=== PATIENT | male | born 1950 | race Caucasian/White ===

== ENCOUNTER 2022-02-03 21:02 | Inpatient (IN) | payer OTHER ==
[~2022-02-03] VITALS: Ht 170.2 cm; Wt 61.2 kg
[2022-02-03] MEDS ORDERED: levoFLOXacin 750MG/D5W 150 ML IV ONE ×2 (21:30→22:08)
[2022-02-03] MEDS ORDERED: ALBUTEROL SULFATE 2.5 MG/3 ML NEBU NEB ONE (21:30)
[2022-02-03] MEDS ORDERED: PIPERACILLIN SODIUM/TAZOBACTAM 3.375 G in IV DEXTROSE 5% 50 ML IV ONE (21:30)
[2022-02-03] MEDS ORDERED: ALBUTEROL SULFATE 2.5 MG/3 ML NEBU ONE (21:33)
[2022-02-03 22:00] LABS: ABG BASE EXCESS 0.3 mmol/L; ABG HCO3 26.5 mmol/L; ABG PCO2 48.3 mmHg (35.0-45.0); ABG PH 7.357 (7.350-7.450); ABG SITE RIGHT RADIAL; ABG TOTAL HEMOGLOBIN 15.2 G/dL (13.5-18.0); COHb 0.3 % (0.5-1.5); MetHb 0.6 % (0.0-1.5); O2Hb 98.6 % (94.0-97.0); VENT MODE BIPAP 15/5
[2022-02-03 22:06] LABS: HEMATOCRIT 42.7 % (36.7-47.1); MEAN CORPUSCULAR HEMOGLOBIN 31.7 uug (23.8-33.4); MEAN CORPUSCULAR VOLUME 93.5 fL (73.0-96.2); PLATELET COUNT (AUTO) 319 K/uL (152-348)
[2022-02-03] MEDS ORDERED: PIPERACILLIN/TAZOBACTAM/D5W 50 ML IV ONE (22:08)
[2022-02-03 22:17] LABS: CARBON DIOXIDE 30 mmol/L (21-32); CHLORIDE 100 mmol/L (98-107); CREATININE 2.2 mg/dL (0.6-1.3); GLUCOSE 162 mg/dL (74-106); POTASSIUM 4.4 mmol/L (3.5-5.1); UREA NITROGEN, BLOOD 30 mg/dL (7-18)
[2022-02-03 22:48] LABS: ALANINE AMINOTRANSFERASE 33 U/L (16-63); ALKALINE PHOSPHATASE 78 U/L (50-136); BILIRUBIN,TOTAL 0.5 mg/dL (0.2-1.0)
[2022-02-03 22:55] LABS: *BILIRUBIN,URIN NEGATIVE (NEGATIVE); *BLOOD, URINE NEGATIVE (NEGATIVE); *CLARITY,URINE CLOUDY (CLEAR); *COLOR,URINE YELLOW (YELLOW); *KETONES,URINE 1+ (NEGATIVE); *UROBILINOGEN,URINE 0.2 E.U./dl (NORMAL); LEUKOCYTE ESTERASE ,URINE TRACE (NEGATIVE); NITRITE, URINE NEGATIVE (NEGATIVE); PH,URINE 5.5 (5.0-8.0); UGLUCOSE NEGATIVE (NEGATIVE)
[2022-02-03] MEDS ORDERED: ENOXAPARIN SODIUM 60 MG/0.6 ML DISP.SYRIN SQ ONE ×2 (23:00→23:09)
[2022-02-03 23:01] LABS: ASPARTATE AMINOTRANSFERASE 35 U/L (15-37); BILIRUBIN,DIRECT 0.1 mg/dL (0.0-0.2)
[2022-02-03 23:05] LABS: ABG BASE EXCESS 3.4 mmol/L; ABG HCO3 30.5 mmol/L; ABG PCO2 55.8 mmHg (35.0-45.0); ABG PH 7.355 (7.350-7.450); ABG PO2 62.5 mmHg (75.0-100.0); ABG SITE RIGHT RADIAL; ABG TOTAL HEMOGLOBIN 15.2 G/dL (13.5-18.0); COHb 0.6 % (0.5-1.5); MetHb 0.7 % (0.0-1.5); VENT MODE BIPAP 15/5
[2022-02-03] MEDS ORDERED: PROPOFOL 100 ML ONE (23:27)
[2022-02-03] MEDS ORDERED: PROPOFOL 100 ML IV ONE (23:30)
[2022-02-03] MEDS ORDERED: IV NORMAL SALINE 1000 ML BAG IV ONE ×2 (23:30)
[2022-02-03] MEDS ORDERED: ETOMIDATE 20 MG/10 ML VIAL IV ONE ×2 (23:30→23:45)
[2022-02-03] MEDS ORDERED: ETOMIDATE 20 MG/10 ML VIAL ONE (23:30)
[2022-02-03] MEDS ORDERED: SUCCINYLCHOLINE CHLORIDE 200 MG/10 ML VIAL IV ONE (23:30)
[2022-02-03] MEDS ORDERED: SUCCINYLCHOLINE CHLORIDE 200 MG/10 ML VIAL ONE (23:30)
[2022-02-03] MEDS ORDERED: HYDR-3972 PO (23:53)
[2022-02-03] MEDS ORDERED: FLUT16SP16 NS (23:53)
[2022-02-03] MEDS ORDERED: SERT25TA PO (23:53)
[2022-02-03] MEDS ORDERED: CALC500T52 PO (23:53)
[2022-02-03] MEDS ORDERED: OMEP20TA20 PO (23:53)
[2022-02-03] MEDS ORDERED: FOLI1TAB94 PO (23:53)
[2022-02-03] MEDS ORDERED: MELA3TAB41 PO (23:53)
[2022-02-03] MEDS ORDERED: ALBU18HF2 IH ×2 (23:53)
[2022-02-03] MEDS ORDERED: MULT-594 PO (23:53)
[2022-02-03] MEDS ORDERED: GABA-532 PO (23:53)
[2022-02-03] MEDS ORDERED: ROSU10TA2 PO (23:53)
[2022-02-03] MEDS ORDERED: MIRT-121 PO (23:53)
[2022-02-03] MEDS ORDERED: GUAI200T5 PO (23:53)
[2022-02-03] MEDS ORDERED: AMLO-212 PO (23:53)
[2022-02-03] MEDS ORDERED: TAMS-3 PO (23:53)
[2022-02-03] MEDS ORDERED: ASPI81TA31 PO (23:53)
[2022-02-03] MEDS ORDERED: ACET-73 PO (23:53)
[2022-02-03] MEDS ORDERED: CHOL200026 PO (23:53)
[2022-02-03] MEDS ORDERED: BUDE10.2 IH (23:53)
[2022-02-03] MEDS ORDERED: IPRA3AMP23 IH (23:53)
[2022-02-04] VITALS (18 sets, daily range): BP systolic 83–149; BP diastolic 45–70
[2022-02-04 00:04] LABS: ABG BASE EXCESS 0.5 mmol/L; ABG HCO3 25.8 mmol/L; ABG PH 7.386 (7.350-7.450); ABG PO2 252.3 mmHg (75.0-100.0); ABG SITE RIGHT RADIAL; ABG TOTAL HEMOGLOBIN 14.6 G/dL (13.5-18.0); COHb 0.5 % (0.5-1.5); MetHb 0.5 % (0.0-1.5); O2Hb 98.7 % (94.0-97.0); VENT MODE VENT - A/C; VT, ABG 550 mL
[2022-02-04 01:19] LABS: BACTERIA,URINE MODERATE /HPF (NONE SEEN); COARSE GRANULAR CASTS,URINE FEW /LPF; SQUAMOUS EPITHELIAL CELL,UR MODERATE /HPF (NONE SEEN)
[2022-02-04] MEDS ORDERED: ACETAMINOPHEN 650 MG SUPP.RECT RC PRN (03:15)
[2022-02-04] MEDS ORDERED: ONDANSETRON 4 MG/2 ML VIAL IV PRN (03:15)
[2022-02-04] MEDS ORDERED: REMEDY ESSENTIAL ZINC PASTE 113 GM TP PRN (03:15)
[2022-02-04] MEDS ORDERED: DEXTROSE 50% 50 ML DISP.SYRIN IV PRN (03:30)
[2022-02-04 05:47] LABS: HEMATOCRIT 33.9 % (36.7-47.1); MEAN CORPUSCULAR HEMOGLOBIN 32.5 uug (23.8-33.4); MEAN CORPUSCULAR VOLUME 93.6 fL (73.0-96.2); PLATELET COUNT (AUTO) 243 K/uL (152-348)
[2022-02-04 05:55] LABS: ABG BASE EXCESS 0.2 mmol/L; ABG HCO3 23.1 mmol/L; ABG PCO2 31.8 mmHg (35.0-45.0); ABG PH 7.479 (7.350-7.450); ABG PO2 109.7 mmHg (75.0-100.0); ABG SITE RIGHT RADIAL; ABG TOTAL HEMOGLOBIN 12.2 G/dL (13.5-18.0); COHb 0.4 % (0.5-1.5); MetHb 0.4 % (0.0-1.5); O2Hb 97.5 % (94.0-97.0); VENT MODE VENT - A/C; VT, ABG 550 mL
[2022-02-04 06:00] LABS: ALANINE AMINOTRANSFERASE 22 U/L (16-63); ALKALINE PHOSPHATASE 52 U/L (50-136); ASPARTATE AMINOTRANSFERASE 44 U/L (15-37); CARBON DIOXIDE 29 mmol/L (21-32); CHLORIDE 107 mmol/L (98-107); CREATININE 2.5 mg/dL (0.6-1.3); GLUCOSE 122 mg/dL (74-106); MAGNESIUM 1.6 mg/dL (1.8-2.4); POTASSIUM 4.4 mmol/L (3.5-5.1); TOTAL PROTEIN, SERUM 5.7 g/dL (6.4-8.2); UREA NITROGEN, BLOOD 34 mg/dL (7-18)
--- NOTE | 2022-02-04 07:15 | NUR ---
Pt received on Pearce ventilator orally intubated with 7.5 ETT secured at 23cm lip line. Pt on ordered settings of A/C 16, VT 550, +5 PEEP , 50% FiO2. Pt tolerating vent settings well. Suctioned for small amounts of ha/yellowish secretions. ETT moved side to side with AnchorFast per hospital policy. No respiratory distress noted. Bag/valve/mask at bedside. HME changed. Oral care done. Vent plugged into red emergency outlet. Will continue to monitor.
[2022-02-04] MEDS: PIPERACILLIN SODIUM/TAZOBACTAM 3.375 G in IV DEXTROSE 5% 50 ML IV SCH ×4 (08:00→23:31)
--- NOTE | 2022-02-04 08:14 | NUR ---
pT RECEIVED IN 2B SEDATED WITH PROPOFOL AT A0 MC/KG/MIN. PT'S V/S IS STABLE.
[2022-02-04] MEDS ORDERED: MAGNESIUM SULFATE/D5W 100 ML IV SCH (08:15)
[2022-02-04] MEDS ORDERED: NOREPINEPHRINE BITARTRATE 4 MG/4 ML VIAL IV ONE (08:19)
[2022-02-04] MEDS ORDERED: PIPERACILLIN/TAZOBACTAM/D5W 0 ML IV ONE (08:53)
[2022-02-04] MEDS ORDERED: MAGNESIUM SULFATE/D5W 100 ML ONE (08:54)
[2022-02-04] MEDS ORDERED: PANTOPRAZOLE SODIUM 40 MG VIAL ONE (08:55)
--- NOTE | 2022-02-04 08:57 | NUR ---
HAND OFFTO MORNING NURSE ASSIGNED. PROPFOL INFUSING ORDERED.SBP 95.. INFUSING AT 8 MCG/KG/MIN.
[2022-02-04] MEDS: PANTOPRAZOLE SODIUM 40 MG VIAL IV SCH (09:00)
[2022-02-04] MEDS ORDERED: PIPERACILLIN/TAZOBACTAM/D5W 50 ML IV ONE ×3 (09:33→23:02)
--- NOTE | 2022-02-04 09:36 | NUR ---
PT IS IN BED #1A. REPORT WAS RECEIVED FROM STAFF FORESTER CCU RN. NO S/S OF ACUTE DISTRESS AT THIS TIME. CONTINUE TO MONITOR THE PT.
[2022-02-04] MEDS: NOREPINEPHRINE BITARTRATE 8 MG in IV NORMAL SALINE 242 ML IV PRN (10:44)
[2022-02-04] MEDS ORDERED: methylPREDNISolone SOD SUCC 40 MG/ML VIAL ONE ×3 (10:46→23:02)
[2022-02-04] MEDS: methylPREDNISolone SOD SUCC 40 MG/ML VIAL IV SCH ×3 (10:52→23:31)
[2022-02-04] MEDS: BLOOD SUGAR DIAGNOSTIC 1 EACH STRIP VI SCH ×2 (12:13→18:00)
--- NOTE | 2022-02-04 13:00 | NUR ---
Admission documentation done as requested by Heidi Rodriguez RN (Director of [facility]). Primary nurse taken care of Maikel Vargas RN. Any discrepancy in my documentation should be referred to the primary nurse YUAN Ko.
[2022-02-04] MEDS: IV 1/2NS 1000 ML 1,000 ML IV PRN (13:12)
--- NOTE | 2022-02-04 14:10 | NUR ---
DR WEBSTER EVALUATED THE PT .
--- NOTE | 2022-02-04 15:15 | NUR ---
Received pt. from [facility]. transfer from [facility]. Patient on ventilator, ETT 7.5 24LL A/C 16, tv 550 Peep +5 [id number]%. saturation 98%. Patient on Soft Restrain to RUE, and attempting to reach ETT with transfer. Pt. fully awake gagging and able to respond to closed ended questions. Propofol running. at 25mcg/kg/min. titrated for adequate sedation following protocol. Jhaveri to gravity. Hemodynamically stable on NSR SBP maintained by levophed running at 0.1mcg/kg/min/. PT. situated in bed. Will continue to monitor.
--- NOTE | 2022-02-04 15:21 | NUR ---
REPORT WAS GIVEN TO CCU YUAN BARRAGAN. PT WAS TRANSFERED TO ER ROOM #1B.
[2022-02-04] MEDS ORDERED: PROPOFOL 100 ML ONE ×2 (18:33→23:54)
--- NOTE | 2022-02-04 18:38 | NUR ---
Patient remains on ventilator with AC rate of 16, TV 550, PEEP of 5, 50% FiO2. No tachypnea, no distress noted and O2 sat is 99%. No secretions thru ET tube. Neuro adequate sedation achieve, propofol running at 40 mcg/kg/min. Hemodynamically stable on NSR SBP within desired limits with support of vasopressor, No edema noted. GI-biggs no n/v/d. biggs Jhaveri cath flowing to gravity with 1200 cc output dark elvi color urine. Mild skin breakdown with no complications, midline patent will endorse for continuous care.
[2022-02-05] VITALS (23 sets, daily range): BP systolic 95–143; BP diastolic 38–73
[2022-02-05] MEDS: PROPOFOL 100 ML IV PRN ×4 (00:01→16:18)
[2022-02-05] MEDS: INSULIN REGULAR, HUMAN 300 UNIT/3 ML VIAL SQ PRN ×2 (00:30→06:45)
[2022-02-05] MEDS ORDERED: PIPERACILLIN/TAZOBACTAM/D5W 50 ML IV ONE ×2 (01:56→22:02)
[2022-02-05] MEDS: PIPERACILLIN SODIUM/TAZOBACTAM 3.375 G in IV DEXTROSE 5% 50 ML IV SCH ×4 (02:13→20:00)
[2022-02-05] MEDS: IV 1/2NS 1000 ML 1,000 ML IV PRN ×2 (02:18→17:59)
[2022-02-05 05:15] LABS: CARBON DIOXIDE 24 mmol/L (21-32); CHLORIDE 105 mmol/L (98-107); CREATININE 1.7 mg/dL (0.6-1.3); GLUCOSE 206 mg/dL (74-106); MAGNESIUM 2.3 mg/dL (1.8-2.4); PHOSPHOROUS 1.4 mg/dL (2.5-4.9); POTASSIUM 3.5 mmol/L (3.5-5.1); UREA NITROGEN, BLOOD 27 mg/dL (7-18)
[2022-02-05] MEDS ORDERED: methylPREDNISolone SOD SUCC 40 MG/ML VIAL ONE ×3 (05:29→18:00)
[2022-02-05] MEDS ORDERED: PROPOFOL 100 ML ONE ×4 (05:30→20:57)
[2022-02-05 05:33] LABS: HEMATOCRIT 32.3 % (36.7-47.1); MEAN CORPUSCULAR HEMOGLOBIN 31.9 uug (23.8-33.4); MEAN CORPUSCULAR VOLUME 92.3 fL (73.0-96.2); PLATELET COUNT (AUTO) 272 K/uL (152-348)
[2022-02-05] MEDS ORDERED: NOREPINEPHRINE BITARTRATE 4 MG/4 ML VIAL IV ONE ×2 (05:33→23:13)
[2022-02-05 05:43] LABS: ABG BASE EXCESS 0.4 mmol/L; ABG PCO2 23.8 mmHg (35.0-45.0); ABG PH 7.564 (7.350-7.450); ABG PO2 118.3 mmHg (75.0-100.0); ABG SITE RIGHT RADIAL; ABG TOTAL HEMOGLOBIN 12.8 G/dL (13.5-18.0); COHb 0.3 % (0.5-1.5); MetHb 0.2 % (0.0-1.5); O2Hb 98.4 % (94.0-97.0); VENT MODE VENT - A/C; VT, ABG 550 mL
[2022-02-05] MEDS: methylPREDNISolone SOD SUCC 40 MG/ML VIAL IV SCH ×2 (05:56→18:01)
[2022-02-05] MEDS: NOREPINEPHRINE BITARTRATE 8 MG in IV NORMAL SALINE 242 ML IV PRN (06:46)
[2022-02-05] MEDS: BLOOD SUGAR DIAGNOSTIC 1 EACH STRIP VI SCH ×4 (06:49→17:20)
[2022-02-05] MEDS ORDERED: PANTOPRAZOLE SODIUM 40 MG VIAL ONE (08:07)
[2022-02-05] MEDS: PANTOPRAZOLE SODIUM 40 MG VIAL IV SCH (08:23)
[2022-02-05] MEDS ORDERED: POTASSIUM PHOSPHATE MM 15 MMOL in IV NORMAL SALINE 250 ML IV ONE (10:00)
--- NOTE | 2022-02-05 10:00 | NUR ---
Attending N.P in the unit to see and examine pt. report given orders to continue with care plan received and implemented.
--- NOTE | 2022-02-05 11:38 | NUR ---
Pulmonary services, Dr. Frances in the unit report given orders for CPAP trial for 02/06/2022. CPAP PSV10 PEEP+5. ABG in 1 hour or sooner if not tolerated. Decrease sedation only mild sedation if needed it. Addendum: 02/05/22 at 1443 by YUNG DELUCA RN User error orders received from Dr. Hsieh.
[2022-02-06] VITALS (12 sets, daily range): BP systolic 99–146; BP diastolic 43–70
[2022-02-06] MEDS ORDERED: PROPOFOL 100 ML ONE ×2 (01:27→04:22)
[2022-02-06] MEDS: PROPOFOL 100 ML IV PRN (01:30)
[2022-02-06] MEDS: PIPERACILLIN SODIUM/TAZOBACTAM 3.375 G in IV DEXTROSE 5% 50 ML IV SCH ×4 (02:00→20:41)
[2022-02-06] MEDS ORDERED: MIDAZOLAM HCL 50 MG in IV NORMAL SALINE 40 ML IV PRN (03:00)
[2022-02-06] MEDS ORDERED: FENTANYL CITRATE/PF 1,000 MCG in IV NORMAL SALINE 80 ML IV PRN (03:00)
[2022-02-06] MEDS ORDERED: NOREPINEPHRINE BITARTRATE 4 MG/4 ML VIAL IV ONE (03:21)
[2022-02-06] MEDS ORDERED: PIPERACILLIN/TAZOBACTAM/D5W 50 ML IV ONE ×3 (04:29→14:44)
[2022-02-06 04:51] LABS: HEMATOCRIT 32.2 % (36.7-47.1); MEAN CORPUSCULAR HEMOGLOBIN 31.5 uug (23.8-33.4); MEAN CORPUSCULAR VOLUME 92.2 fL (73.0-96.2); PLATELET COUNT (AUTO) 255 K/uL (152-348)
[2022-02-06 05:06] LABS: CARBON DIOXIDE 22 mmol/L (21-32); CHLORIDE 108 mmol/L (98-107); CREATININE 1.6 mg/dL (0.6-1.3); GLUCOSE 232 mg/dL (74-106); MAGNESIUM 2.3 mg/dL (1.8-2.4); PHOSPHOROUS 4.7 mg/dL (2.5-4.9); POTASSIUM 3.6 mmol/L (3.5-5.1); UREA NITROGEN, BLOOD 31 mg/dL (7-18)
[2022-02-06 05:39] LABS: ABG BASE EXCESS -2.3 mmol/L; ABG HCO3 19.8 mmol/L; ABG PCO2 26.3 mmHg (35.0-45.0); ABG PH 7.494 (7.350-7.450); ABG PO2 91.5 mmHg (75.0-100.0); ABG SITE RIGHT RADIAL; ABG TOTAL HEMOGLOBIN 11.5 G/dL (13.5-18.0); COHb 0.3 % (0.5-1.5); MetHb 0.2 % (0.0-1.5); O2Hb 96.6 % (94.0-97.0); VENT MODE VENT - A/C; VT, ABG 550 mL
[2022-02-06] MEDS: BLOOD SUGAR DIAGNOSTIC 1 EACH STRIP VI SCH ×4 (06:00→17:07)
[2022-02-06] MEDS: methylPREDNISolone SOD SUCC 40 MG/ML VIAL IV SCH ×2 (06:00→17:53)
--- NOTE | 2022-02-06 08:28 | NUR ---
turned down sedation for weaning. patient not responding so sedation completely turned off. continue with sedation vacation and will continue to wean if tolerated. reported to me that patient was agitated over night received patient on 60 mcg of propofol. Addendum: 02/07/22 at 1444 by REGISTRY [facility] RN1 RN pT CANT DRINK LYING DOWN
[2022-02-06] MEDS: INSULIN REGULAR, HUMAN 300 UNIT/3 ML VIAL SQ PRN (08:38)
[2022-02-06] MEDS ORDERED: PANTOPRAZOLE SODIUM 40 MG VIAL ONE (08:53)
[2022-02-06] MEDS: PANTOPRAZOLE SODIUM 40 MG VIAL IV SCH (09:13)
[2022-02-06 09:59] LABS: ABG BASE EXCESS -2.7 mmol/L; ABG HCO3 20.2 mmol/L; ABG PCO2 29.3 mmHg (35.0-45.0); ABG PH 7.456 (7.350-7.450); ABG PO2 119.2 mmHg (75.0-100.0); ABG SITE LEFT RADIAL; ABG TOTAL HEMOGLOBIN 12.1 G/dL (13.5-18.0); COHb 0.3 % (0.5-1.5); MetHb 0.2 % (0.0-1.5); VENT MODE CPAP
[2022-02-06] MEDS ORDERED: DC PROPOFOL ONCE EXTUBATED XX PRN (10:10)
[2022-02-06] MEDS ORDERED: MORPHINE SULFATE 2 MG/1 ML DISP.SYRIN IV ONE (12:30)
[2022-02-06] MEDS ORDERED: CHOLECALCIFEROL 400 UNITS TABLET ONE (12:56)
[2022-02-06] MEDS ORDERED: GUAIFENESIN LA 600 MG TABLET.SA PO ONE (12:56)
[2022-02-06] MEDS ORDERED: ASPIRIN 81 MG TAB.CHEW ONE (12:56)
[2022-02-06] MEDS ORDERED: FOLIC ACID 1 MG TABLET ONE (12:56)
[2022-02-06] MEDS ORDERED: GABAPENTIN 300 MG CAPSULE ONE (12:56)
[2022-02-06] MEDS ORDERED: MORPHINE SULFATE 2 MG/1 ML DISP.SYRIN ONE (12:57)
[2022-02-06] MEDS ORDERED: SERTRALINE HCL 50 MG TABLET ONE (12:57)
[2022-02-06] MEDS ORDERED: TAMSULOSIN HCL 0.4 MG CAP.SR.24H ONE (12:57)
[2022-02-06] MEDS ORDERED: SERTRALINE HCL 50 MG TABLET GT SCH (13:00)
[2022-02-06] MEDS ORDERED: ASPIRIN 81 MG TAB.CHEW GT SCH (13:00)
[2022-02-06] MEDS ORDERED: FOLIC ACID 1 MG TABLET GT SCH (13:00)
[2022-02-06] MEDS ORDERED: CHOLECALCIFEROL 400 UNITS TABLET GT SCH (13:00)
[2022-02-06] MEDS ORDERED: MULTIVITAMINS,THERAPEUTIC TABLET GT SCH (13:00)
[2022-02-06] MEDS ORDERED: FLUTICASONE PROP NASAL SPRAY 16 GM BOTTLE NS PRN (13:00)
[2022-02-06] MEDS: FOLIC ACID 1 MG TABLET PO SCH (13:07)
[2022-02-06] MEDS: CHOLECALCIFEROL 400 UNITS TABLET PO SCH (13:08)
[2022-02-06] MEDS: GABAPENTIN 300 MG CAPSULE PO SCH ×2 (13:08→16:23)
[2022-02-06] MEDS: MULTIVITAMINS,THERAPEUTIC TABLET PO SCH (13:08)
[2022-02-06] MEDS: ASPIRIN 81 MG TAB.CHEW PO SCH (13:08)
[2022-02-06] MEDS: GUAIFENESIN LA 600 MG TABLET.SA PO SCH ×2 (13:09→21:00)
[2022-02-06] MEDS: TAMSULOSIN HCL 0.4 MG CAP.SR.24H PO SCH (13:09)
[2022-02-06] MEDS: SERTRALINE HCL 50 MG TABLET PO SCH (13:09)
[2022-02-06] MEDS: IV 1/2NS 1000 ML 1,000 ML IV PRN (14:23)
[2022-02-06] MEDS: HYDROCODONE/APAP 5-325MG TABLET PO PRN ×2 (16:23→22:24)
[2022-02-06] MEDS ORDERED: ACETAMINOPHEN ES 500 MG TABLET PO PRN (19:45)
[2022-02-06] MEDS: MELATONIN 3 MG TABLET PO SCH (21:00)
[2022-02-06] MEDS: MIRTAZAPINE 15 MG TABLET PO SCH (21:00)
[2022-02-06] MEDS: ATORVASTATIN 20 MG TABLET PO SCH (21:00)
[2022-02-07] VITALS: BP 131/54
[2022-02-07] MEDS: PIPERACILLIN SODIUM/TAZOBACTAM 3.375 G in IV DEXTROSE 5% 50 ML IV SCH ×4 (02:00→21:15)
[2022-02-07 04:00] VITALS: BP 121/54
[2022-02-07] MEDS: HYDROCODONE/APAP 5-325MG TABLET PO PRN ×9 (05:04→23:56)
[2022-02-07] MEDS: methylPREDNISolone SOD SUCC 40 MG/ML VIAL IV SCH ×2 (05:08→18:00)
[2022-02-07] MEDS: BLOOD SUGAR DIAGNOSTIC 1 EACH STRIP VI SCH ×5 (05:09→23:16)
[2022-02-07] MEDS: PANTOPRAZOLE SODIUM 40 MG TABLET.DR PO SCH (07:27)
[2022-02-07 07:37] LABS: HEMATOCRIT 31.5 % (36.7-47.1); MEAN CORPUSCULAR HEMOGLOBIN 32.2 uug (23.8-33.4); MEAN CORPUSCULAR VOLUME 92.8 fL (73.0-96.2); PLATELET COUNT (AUTO) 236 K/uL (152-348)
[2022-02-07 07:53] LABS: CARBON DIOXIDE 27 mmol/L (21-32); CHLORIDE 109 mmol/L (98-107); CREATININE 1.4 mg/dL (0.6-1.3); GLUCOSE 109 mg/dL (74-106); MAGNESIUM 2.2 mg/dL (1.8-2.4); PHOSPHOROUS 4.9 mg/dL (2.5-4.9); POTASSIUM 4.2 mmol/L (3.5-5.1); UREA NITROGEN, BLOOD 35 mg/dL (7-18)
[2022-02-07 08:06] LABS: ABG BASE EXCESS -2.8 mmol/L; ABG HCO3 21.2 mmol/L; ABG PCO2 34.5 mmHg (35.0-45.0); ABG PH 7.407 (7.350-7.450); ABG PO2 139.5 mmHg (75.0-100.0); ABG SITE RIGHT RADIAL; COHb 0.2 % (0.5-1.5); MetHb 0.2 % (0.0-1.5); O2Hb 98.2 % (94.0-97.0); VENT MODE Nasal Cannula
[2022-02-07] MEDS: MULTIVITAMINS,THERAPEUTIC TABLET PO SCH (09:00)
[2022-02-07] MEDS: TAMSULOSIN HCL 0.4 MG CAP.SR.24H PO SCH (09:00)
[2022-02-07] MEDS: CALCIUM CARBONATE 500 MG TABLET PO SCH (09:00)
[2022-02-07] MEDS: GUAIFENESIN LA 600 MG TABLET.SA PO SCH ×2 (09:00→21:15)
[2022-02-07] MEDS: CHOLECALCIFEROL 400 UNITS TABLET PO SCH (09:00)
[2022-02-07] MEDS: GABAPENTIN 300 MG CAPSULE PO SCH ×3 (09:00→17:00)
[2022-02-07] MEDS: FOLIC ACID 1 MG TABLET PO SCH (09:00)
[2022-02-07] MEDS: ASPIRIN 81 MG TAB.CHEW PO SCH (09:00)
[2022-02-07] MEDS: SERTRALINE HCL 50 MG TABLET PO SCH (09:00)
[2022-02-07] MEDS: AMLODIPINE 5 MG TABLET PO SCH (09:00)
[2022-02-07] MEDS: MIRTAZAPINE 15 MG TABLET PO SCH (21:15)
[2022-02-07] MEDS: MELATONIN 3 MG TABLET PO SCH (21:15)
[2022-02-07] MEDS: ATORVASTATIN 20 MG TABLET PO SCH (21:15)
[2022-02-07] MEDS: LORAZEPAM 2 MG/1 ML VIAL IV PRN (21:51)
[2022-02-07] MEDS ORDERED: ALBUTEROL SULFATE 1.25 MG/3 ML NEBU NEB PRN (23:45)
--- NOTE | 2022-02-08 00:05 | NUR ---
--RECEIVED PT A/OX3 WITH STABLE VS. PT IS AWAKE. PT DENIES PAIN. SR. PT IS ON O2 4L/NC. POX >90%. RESPS REG/UNLAB. IV I/P VIA R.ARM ML. PT HAS F/C I/P. PT HAS DISPO FOR TRANSFER TO TELE. REPORT GIVEN TO YUAN LIVINGSTON. PT TRANSFERED AT 0005 VIA BED WITH ACLS PROTOCOL TO RM 310. PT'S FAMILY NOTIFIED. THUY BOLDEN
[2022-02-08] MEDS ORDERED: MORPHINE SULFATE 4 MG/1 ML DISP.SYRIN IV PRN (01:15)
[2022-02-08] MEDS: PIPERACILLIN SODIUM/TAZOBACTAM 3.375 G in IV DEXTROSE 5% 50 ML IV SCH ×2 (01:44→08:30)
[2022-02-08] MEDS: LORAZEPAM 2 MG/1 ML VIAL IV PRN (03:41)
[2022-02-08] MEDS ORDERED: MORPHINE SULFATE 2 MG/1 ML DISP.SYRIN IV PRN (05:45)
[2022-02-08] MEDS: PANTOPRAZOLE SODIUM 40 MG TABLET.DR PO SCH (06:08)
[2022-02-08] MEDS: BLOOD SUGAR DIAGNOSTIC 1 EACH STRIP VI SCH ×3 (06:08→18:26)
[2022-02-08] MEDS: methylPREDNISolone SOD SUCC 40 MG/ML VIAL IV SCH ×2 (06:08→17:22)
[2022-02-08 06:35] LABS: HEMATOCRIT 30.2 % (36.7-47.1); MEAN CORPUSCULAR HEMOGLOBIN 31.7 uug (23.8-33.4); MEAN CORPUSCULAR VOLUME 92.7 fL (73.0-96.2); PLATELET COUNT (AUTO) 217 K/uL (152-348)
[2022-02-08 07:02] LABS: CREATININE 1.2 mg/dL (0.6-1.3); MAGNESIUM 2.1 mg/dL (1.8-2.4); PHOSPHOROUS 3.1 mg/dL (2.5-4.9); POTASSIUM 3.8 mmol/L (3.5-5.1)
[2022-02-08] MEDS: GABAPENTIN 300 MG CAPSULE PO SCH ×3 (08:30→17:22)
[2022-02-08] MEDS: CHOLECALCIFEROL 400 UNITS TABLET PO SCH (08:31)
[2022-02-08] MEDS: CALCIUM CARBONATE 500 MG TABLET PO SCH (08:31)
[2022-02-08] MEDS: ASPIRIN 81 MG TAB.CHEW PO SCH (08:31)
[2022-02-08] MEDS: MULTIVITAMINS,THERAPEUTIC TABLET PO SCH (08:31)
[2022-02-08] MEDS: FOLIC ACID 1 MG TABLET PO SCH (08:31)
[2022-02-08] MEDS: SERTRALINE HCL 50 MG TABLET PO SCH (08:31)
[2022-02-08] MEDS: AMLODIPINE 5 MG TABLET PO SCH (08:36)
[2022-02-08] MEDS: IV 1/2NS 1000 ML 1,000 ML IV PRN (11:15)
[2022-02-08] MEDS: GUAIFENESIN LA 600 MG TABLET.SA PO SCH ×2 (11:22→21:18)
[2022-02-08 11:57] VITALS: BP 101/46
[2022-02-08 15:37] VITALS: BP 151/44
[2022-02-08] MEDS: PIPERACILLIN SODIUM/TAZOBACTAM 3.375 G in IV DEXTROSE 5% 100 ML IV SCH (16:27)
[2022-02-08] MEDS: INSULIN REGULAR, HUMAN 300 UNIT/3 ML VIAL SQ PRN (18:27)
[2022-02-08 20:00] VITALS: BP 107/49
[2022-02-08] MEDS: MELATONIN 3 MG TABLET PO SCH (21:18)
[2022-02-08] MEDS: TAMSULOSIN HCL 0.4 MG CAP.SR.24H PO SCH (21:18)
[2022-02-08] MEDS: ATORVASTATIN 20 MG TABLET PO SCH (21:18)
[2022-02-08] MEDS: MIRTAZAPINE 15 MG TABLET PO SCH (21:18)
[2022-02-09] VITALS: BP 93/44
[2022-02-09] MEDS: PIPERACILLIN SODIUM/TAZOBACTAM 3.375 G in IV DEXTROSE 5% 100 ML IV SCH ×4 (00:07→23:57)
[2022-02-09] MEDS: BLOOD SUGAR DIAGNOSTIC 1 EACH STRIP VI SCH ×5 (00:12→23:57)
[2022-02-09] MEDS: INSULIN REGULAR, HUMAN 300 UNIT/3 ML VIAL SQ PRN ×3 (00:15→06:43)
[2022-02-09 04:00] VITALS: BP 101/44
[2022-02-09] MEDS: methylPREDNISolone SOD SUCC 40 MG/ML VIAL IV SCH (05:46)
--- NOTE | 2022-02-09 06:13 | NUR ---
Slept intermittently, denies chest pain, no acute distress noted. Needs assessed and attended to. Call light within easy reach.
[2022-02-09] MEDS: PANTOPRAZOLE SODIUM 40 MG TABLET.DR PO SCH ×3 (06:17→06:45)
[2022-02-09 07:43] LABS: HEMATOCRIT 34.5 % (36.7-47.1); MEAN CORPUSCULAR HEMOGLOBIN 31.7 uug (23.8-33.4); MEAN CORPUSCULAR VOLUME 92.7 fL (73.0-96.2); PLATELET COUNT (AUTO) 285 K/uL (152-348)
[2022-02-09 07:55] LABS: CREATININE 1.1 mg/dL (0.6-1.3); MAGNESIUM 2.1 mg/dL (1.8-2.4); POTASSIUM 4.4 mmol/L (3.5-5.1)
[2022-02-09] MEDS: GABAPENTIN 300 MG CAPSULE PO SCH ×3 (08:16→17:49)
[2022-02-09] MEDS: CALCIUM CARBONATE 500 MG TABLET PO SCH (08:16)
[2022-02-09] MEDS: CHOLECALCIFEROL 400 UNITS TABLET PO SCH (08:16)
[2022-02-09] MEDS: ASPIRIN 81 MG TAB.CHEW PO SCH (08:16)
[2022-02-09] MEDS: GUAIFENESIN LA 600 MG TABLET.SA PO SCH ×2 (08:16→21:05)
[2022-02-09] MEDS: MULTIVITAMINS,THERAPEUTIC TABLET PO SCH (08:16)
[2022-02-09] MEDS: FOLIC ACID 1 MG TABLET PO SCH (08:16)
[2022-02-09] MEDS: SERTRALINE HCL 50 MG TABLET PO SCH (08:17)
[2022-02-09] MEDS: AMLODIPINE 5 MG TABLET PO SCH (08:33)
[2022-02-09 11:30] VITALS: BP 119/60
[2022-02-09] MEDS ORDERED: METH4TAB3 PO (15:41)
[2022-02-09 16:26] VITALS: BP 120/58
--- NOTE | 2022-02-09 17:00 | NUR ---
PT WILL GO BACK [facility] TO [facility] AT 1200 PER CM. REPORT ALREADY GIVEN TO ESE BOLDEN OF [facility].
[2022-02-09] MEDS: predniSONE 20 MG TABLET PO SCH (17:49)
--- NOTE | 2022-02-09 18:30 | NUR ---
NO ACUTE DISTRESS NOTED. NO COMPLAIN OF PAIN. PT ON RA SATURATING AT 97%. VITALS WNL. ASPIRATION PRECAUTION IN PLACED.PT IS AGITATED AT TIMES WHEN HE DOES NOT GET WHAT HE WANTS. PT REFUSED TO EAT PUREED MEALS. STILL ON ABX TX. [place] INTACT AND DRAINING WELL. CALL LIGHT ON BEDSIDE.
[2022-02-09 20:00] VITALS: BP 138/72
[2022-02-09] MEDS: ATORVASTATIN 20 MG TABLET PO SCH (21:05)
[2022-02-09] MEDS: TAMSULOSIN HCL 0.4 MG CAP.SR.24H PO SCH (21:05)
[2022-02-09] MEDS: MELATONIN 3 MG TABLET PO SCH (21:05)
[2022-02-09] MEDS: MIRTAZAPINE 15 MG TABLET PO SCH (21:06)
[2022-02-10] MEDS: INSULIN REGULAR, HUMAN 300 UNIT/3 ML VIAL SQ PRN (00:08)
[2022-02-10 04:00] VITALS: BP 126/40
[2022-02-10 06:33] LABS: HEMATOCRIT 31.8 % (36.7-47.1); MEAN CORPUSCULAR HEMOGLOBIN 31.9 uug (23.8-33.4); MEAN CORPUSCULAR VOLUME 90.9 fL (73.0-96.2); PLATELET COUNT (AUTO) 271 K/uL (152-348)
[2022-02-10] MEDS: PANTOPRAZOLE SODIUM 40 MG TABLET.DR PO SCH (06:41)
[2022-02-10] MEDS: BLOOD SUGAR DIAGNOSTIC 1 EACH STRIP VI SCH ×2 (06:42→12:00)
[2022-02-10 06:58] LABS: MAGNESIUM 1.6 mg/dL (1.8-2.4); PHOSPHOROUS 2.9 mg/dL (2.5-4.9); POTASSIUM 4.7 mmol/L (3.5-5.1)
[2022-02-10] MEDS: predniSONE 20 MG TABLET PO SCH ×2 (08:00→09:14)
[2022-02-10] MEDS: PIPERACILLIN SODIUM/TAZOBACTAM 3.375 G in IV DEXTROSE 5% 100 ML IV SCH (08:00)
[2022-02-10 09:00] VITALS: BP 122/49
[2022-02-10] MEDS: AMLODIPINE 5 MG TABLET PO SCH ×2 (09:00→09:17)
[2022-02-10] MEDS: CALCIUM CARBONATE 500 MG TABLET PO SCH ×2 (09:00→09:15)
[2022-02-10] MEDS: ASPIRIN 81 MG TAB.CHEW PO SCH ×2 (09:00→09:08)
[2022-02-10] MEDS: GABAPENTIN 300 MG CAPSULE PO SCH ×2 (09:00→09:08)
[2022-02-10] MEDS: FOLIC ACID 1 MG TABLET PO SCH (09:09)
[2022-02-10] MEDS: CHOLECALCIFEROL 400 UNITS TABLET PO SCH (09:09)
[2022-02-10] MEDS: GUAIFENESIN LA 600 MG TABLET.SA PO SCH (09:09)
[2022-02-10] MEDS: SERTRALINE HCL 50 MG TABLET PO SCH (09:09)
[2022-02-10] MEDS: MULTIVITAMINS,THERAPEUTIC TABLET PO SCH (09:17)
--- NOTE | 2022-02-10 09:46 | NUR ---
patient refused his atb IV medication, risks and benefits explained, patient verbalized understanding of it, still refused.
[2022-02-10] MEDS ORDERED: MAGNESIUM OXIDE 400 MG TABLET PO ONE (10:00)
--- NOTE | 2022-02-10 12:31 | NUR ---
RECEIVED PATIENT AWAKE IN BED. HE IS ALERT WITH PERIODS OF CONFUSION. hE CAME IN FOR SHIRTNESS OF BREATH WITH COUGH. DX: RESPIRATORY FAILURE/ ASPIRATION. PATIENT ABLE TO TAKE PILLS WHOLE. HE REFUSED ALL MEDICATIONS EXCEPT FOR THE VITAMINS. [facility] HE WAS PICKED UP BY [facility]BULANCE IN STABLE CONDITION. ALL DISCHARGE INSTRUCTIONS AND PAPER WORK SENT WITH PATIENT. FACILITY CALLED AND GAVE REPORT TO NURSE LINCOLN. F/C AND IV TAKEN OFF BEFORE PATIENTS DEPARTURE. HE LEFT COMFORT AND INSTABLE CONDITION.
== END 2022-02-10 11:30 | DRG 871 ==
LOC: ER 21:04 → TRANSITION 02-04 01:00 → CCU 02-06 15:33 → TELE3 02-07 21:00 → MEDSURG3 02-09 10:34
PROVIDERS: ADMIT Nurse Practitioner Family; ATTEND Nurse Practitioner Acute Care
PROC: 5A09357 Assistance with Respiratory Ventilation, Less than 24 Consecutive Hours, Continuous Positive Airway Pressure (ICD-10-PCS; principal; 2022-02-04)
PROC: 05H533Z Insertion of Infusion Device into Right Subclavian Vein, Percutaneous Approach (ICD-10-PCS; 2022-02-04)
PROC: 5A1945Z Respiratory Ventilation, 24-96 Consecutive Hours (ICD-10-PCS; 2022-02-04)
PROC: 0BH17EZ Insertion of Endotracheal Airway into Trachea, Via Natural or Artificial Opening (ICD-10-PCS; 2022-02-04)
PROC: B546ZZA Ultrasonography of Right Subclavian Vein, Guidance (ICD-10-PCS; 2022-02-04)
DX: A41.9 Sepsis, unspecified organism (principal); J69.0 Pneumonitis due to inhalation of food and vomit; J96.02 Acute respiratory failure with hypercapnia; J96.01 Acute respiratory failure with hypoxia; N17.0 Acute kidney failure with tubular necrosis; R65.21 Severe sepsis with septic shock; E87.20 Acidosis, unspecified; I42.0 Dilated cardiomyopathy; J44.0 Chronic obstructive pulmonary disease with (acute) lower respiratory infection; N39.0 Urinary tract infection, site not specified; Z16.12 Extended spectrum beta lactamase (ESBL) resistance; J44.1 Chronic obstructive pulmonary disease with (acute) exacerbation; I69.354 Hemiplegia and hemiparesis following cerebral infarction affecting left non-dominant side; F32.A Depression, unspecified; Z87.11 Personal history of peptic ulcer disease; K21.9 Gastro-esophageal reflux disease without esophagitis; N18.9 Chronic kidney disease, unspecified; B95.2 Enterococcus as the cause of diseases classified elsewhere; N40.1 Benign prostatic hyperplasia with lower urinary tract symptoms; F41.9 Anxiety disorder, unspecified; I49.3 Ventricular premature depolarization; Z86.711 Personal history of pulmonary embolism; E11.22 Type 2 diabetes mellitus with diabetic chronic kidney disease; B96.20 Unspecified Escherichia coli [E. coli] as the cause of diseases classified elsewhere; F43.10 Post-traumatic stress disorder, unspecified
CPT/HCPCS: 36415; 36600; 71045; 76770; 82803; 83605; 83735; 84100; 84484; 85025; 87040; 87070; 87077; 87086; 93005; 93307; 94002; 94003; 94660; 94664; 99082-TC; A4663; A9150; C9113; G0378; J0330; J1650; J1815; J1956; J2060; J2270; J2543; J2920; J3475; J3490; J3535; J7040; J7512